=== PATIENT | female | born 1990 | race Caucasian/White ===

== ENCOUNTER 2020-03-27 07:30 | Inpatient (IN) | payer OTHER ==
[~2020-03-27] VITALS: Ht 154.9 cm; Wt 109.0 kg
[~2020-03-27 07:30] MED LIST: GLYB2.5 PO; METF500 PO; PRENATAL TABLE1 EAC2 PO; ST. JOSEPH ASPI81 M1 PO
[2020-03-27 11:22] LABS: BASOPHILS ABSOLUTE AUTO 0.03 K/mm3 (0.00-0.23); BASOPHILS PERCENT AUTO 0 % (0-2); EOSINOPHILS ABSOLUTE AUTO 0.04 K/mm3 (0.00-0.68); EOSINOPHILS PERCENT AUTO 0 % (0-6); Hematocrit 36.7 % (33.0-51.0); Hemoglobin 11.9 g/dL (11.5-16.0); IMMATURE GRAN ABSOLUTE AUTO 0.14 K/mm3 (0.00-0.10); IMMATURE GRAN PERCENT AUTO 1 % (0-1); LYMPHOCYTES ABSOLUTE AUTO 1.64 K/mm3 (0.84-5.20); LYMPHOCYTES PERCENT AUTO 16 % (21-46); MONOCYTES ABSOLUTE AUTO 0.96 K/mm3 (0.16-1.47); MONOCYTES PERCENT AUTO 9 % (4-13); Mean Corpuscular HGB Conc 32.4 g/dL (31.5-36.5); Mean Corpuscular Volume 86 fL (80-100); Mean Platelet Volume 9.4 fL (9.1-12.4); NEUTROPHILS ABSOLUTE AUTO 7.36 K/mm3 (1.96-9.15); NEUTROPHILS PERCENT AUTO 72 % (41-73); Platelet Count 278 K/mm3 (150-400); RDW Coefficient Variation 12.9 % (11.7-14.2); RDW Standard Deviation 40.5 fL (35.1-46.3); Red Blood Cell Count 4.25 M/mm3 (3.80-5.20); White Blood Cell Count 10.17 K/mm3 (4.00-11.30)
[2020-03-27 11:42] LABS: Alanine Aminotransfer (ALT/SGP 20 U/L (12-78); Albumin, Blood 2.3 g/dL (3.4-5.0); Albumin/Globulin Ratio 0.6 (0.8-1.8); Alk Phos 78 U/L (50-136); Anion Gap 8 mmol/L (6-16); Aspartate Aminotrans (AST/SGOT 12 U/L (12-37); Bilirubin, Total 0.5 mg/dL (0.1-1.0); Blood Urea Nitrogen 9 mg/dL (8-24); Bun/Creatinine Ratio 16.9 (12.0-20.0); CO2, Blood 23 mmol/L (21-32); Calcium, Blood 8.6 mg/dL (8.5-10.1); Chloride, Blood 109 mmol/L (98-108); Creatinine, Blood 0.53 mg/dL (0.40-1.00); Globulin, Blood 3.9 g/dL (2.2-4.0); Glomerular Filtration Rate >60 (60-); Glucose, Blood 84 mg/dL (70-99); Sodium, Blood 140 mmol/L (136-145); Total Protein, Blood 6.2 g/dL (6.4-8.2)
--- NOTE | 2020-03-27 13:22 | NUR ---
03/27/20 1322 Mary Herrera 1305 DELIVERY VIABLE FEMALE INFANT, WEIGHT 3645GM 8# 1 OZ, HEAD 14 INCHES, CHEST 14 INCHES, LENGTH 19 INCHES, APGARS 8/9, PLACENT 665GM, UMBILICAL CORD SEGMENT COLLECTED FOR CORD GASES, UMBILICAL CORD BLOOD, COLLECTED FOR TYPE AND RH GIVEN TO RN
[2020-03-27 13:29] LABS: PCO2 Cord - Arterial 54.1 mmHg (40-50); PO2 Cord - Arterial < 16 mmHg (16-20); pH Cord - Arterial 7.27 (7.28-7.35)
[2020-03-27 13:32] LABS: PCO2 Cord - Venous 45.1 mmHg (40-50); PO2 Cord - Venous 20.7 mmHg (28-32); pH Umbilical Cord - Venous 7.32 (7.26-7.35)
--- NOTE | 2020-03-27 23:31 | NUR ---
PT DANGLED AT BEDSIDE, TOLERATED WELL.
[2020-03-28 06:08] LABS: Hematocrit 33.8 % (33.0-51.0); Hemoglobin 10.9 g/dL (11.5-16.0); Mean Corpuscular HGB 27.9 pg (26.0-34.0); Mean Corpuscular HGB Conc 32.2 g/dL (31.5-36.5); Mean Corpuscular Volume 87 fL (80-100); Mean Platelet Volume 9.4 fL (9.1-12.4); Platelet Count 258 K/mm3 (150-400); RDW Coefficient Variation 13.2 % (11.7-14.2); RDW Standard Deviation 41.1 fL (35.1-46.3); White Blood Cell Count 10.76 K/mm3 (4.00-11.30)
--- NOTE | 2020-03-28 08:01 | NUR ---
CBG PT CBG OF 29 AT APPROX 0720 THIS MORNING. APPEARS ASYMPTOMATIC. REPORTS FASTING T/O THE NIGHT. JUICE AND PROTEIN SNACKS THEN PROVIDED. REPEAT CBG AT THIS TIME 163. WILL RESUME ROUTINE MEDICATIONS AND CONT TO MONITOR.
[2020-03-29] MEDS ORDERED: Percocet 5-3251 EACH PO (11:53)
[2020-03-29] MEDS ORDERED: IBUP800 PO (11:55)
--- NOTE | 2020-03-29 14:36 | NUR ---
PT D/C HOME WITH NB, BANDS MATCHED WITH NB. PT SENT WITH HARD SCRIPT FOR PERCOCET AND IBUPROFEN. D/C INSTRUCTIONS REVIEWED WITH PT AND PT INSTRUCTED TO CALL AND SCHDULE POST OP APPOINTMENT WITH PROVIDER AND TO RETURN TO [facility] FOR [facility] APPOINTMENT IN 2 DAYS.
== END 2020-03-29 14:54 | disposition home or self-care (01) | DRG 786 ==
LOC: BC 07:30 → EDUNIT# 07:30 → BC 10:12
PROVIDERS: ADMIT Obstetrics & Gynecology
PROC: 10D00Z1 Extraction of Products of Conception, Low, Open Approach (ICD-10-PCS; principal; 2020-03-27 12:00)
PROC: 3E0234Z Introduction of Serum, Toxoid and Vaccine into Muscle, Percutaneous Approach (ICD-10-PCS; 2020-03-29)
DX: O32.1XX0 Maternal care for breech presentation, not applicable or unspecified (principal); O24.12 Pre-existing type 2 diabetes mellitus, in childbirth; Z23 Encounter for immunization; O14.94 Unspecified pre-eclampsia, complicating childbirth; Z79.84 Long term (current) use of oral hypoglycemic drugs; Z3A.38 38 weeks gestation of pregnancy; Z37.0 Single live birth; O99.214 Obesity complicating childbirth; E66.01 Morbid (severe) obesity due to excess calories; E11.649 Type 2 diabetes mellitus with hypoglycemia without coma
CPT/HCPCS: 36415; 80053; 82803; 82947; 85025; 85027; 86850; 86900; 86901; 90471; A9270; J0690; J1885; J2370; J2405; J2590; J2765; J3010; J7120

== ENCOUNTER → 2020-05-06 | Outpatient (CLI) | payer OTHER ==
[~2020-05-06] MED LIST changes: +IBUP800 PO; +Percocet 5-3251 EACH PO
== END | disposition home or self-care (01) ==
LOC: LAB SHORT 08:10 → PLD 08:10
DX: K06.8 Other specified disorders of gingiva and edentulous alveolar ridge (principal)
CPT/HCPCS: 88305

== ENCOUNTER → 2020-05-29 | Outpatient (CLI) | payer OTHER | END | disposition home or self-care (01) | LOC: LAB SHORT 15:36 | DX: J02.9 Acute pharyngitis, unspecified (principal) | CPT/HCPCS: 87081 ==

== ENCOUNTER → 2021-07-25 | Outpatient (CLI) | payer OTHER | END | disposition home or self-care (01) | LOC: LAB SHORT 11:18 | DX: J06.9 Acute upper respiratory infection, unspecified (principal) | CPT/HCPCS: 87081 ==

== ENCOUNTER → 2022-10-05 | Outpatient (CLI) | payer OTHER ==
[2022-10-07 01:10] LABS: CHLAMYDIA TRACHOMATIS, NAA Negative (Negative)
== END ==
LOC: LAB 17:50 → LAB SHORT 17:50
PROVIDERS: Family Medicine
DX: Z34.01 Encounter for supervision of normal first pregnancy, first trimester (principal); Z3A.01 Less than 8 weeks gestation of pregnancy
CPT/HCPCS: 87086; 87491; 87591

== ENCOUNTER → 2024-01-05 | Outpatient (CLI) | payer OTHER ==
[2024-01-18 14:19] LABS: HPV HIGH RISK BY TMA Not Detected; HPV SOURCE Cervical
== END ==
LOC: LAB SHORT 17:09 → LAB 17:09
PROVIDERS: Family Medicine
DX: Z12.4 Encounter for screening for malignant neoplasm of cervix (principal)
CPT/HCPCS: 87624; G0123

== ENCOUNTER → 2024-04-18 | Outpatient (CLI) | payer OTHER | LOC: LAB SHORT 13:42 → PLD 13:42 → LAB 13:42 | DX: D23.5 Other benign neoplasm of skin of trunk (principal) | CPT/HCPCS: 88305 ==